=== PATIENT | male | born 1945 | race Caucasian/White ===

== ENCOUNTER → 2020-06-19 09:55 | Outpatient (BNVA) | payer MEDICARE, SELFPAY | PROVIDERS: Family Provider Nurse Practitioner Family; PCP Nurse Practitioner Family; Visit Provider Registered Nurse | DX: I10 Essential (primary) hypertension (principal); M1A.9XX0 Chronic gout, unspecified, without tophus (tophi) | CPT/HCPCS: 80053; 80061; 85025 ==

== ENCOUNTER → 2021-07-30 11:18 | Outpatient (BNVA) | payer MEDICARE, SELFPAY | PROVIDERS: Family Provider Nurse Practitioner Family; PCP Nurse Practitioner Family; Visit Provider Registered Nurse | DX: I10 Essential (primary) hypertension (principal); E78.5 Hyperlipidemia, unspecified; M1A.9XX0 Chronic gout, unspecified, without tophus (tophi); N52.1 Erectile dysfunction due to diseases classified elsewhere | CPT/HCPCS: 80053; 80061; 85025 ==

== ENCOUNTER → 2024-03-04 10:23 | Outpatient (BNVA) | payer MEDICARE, SELFPAY | PROVIDERS: Family Provider Nurse Practitioner Family; PCP Nurse Practitioner Family; Visit Provider Registered Nurse | DX: I10 Essential (primary) hypertension (principal) | CPT/HCPCS: 80053; 80061; 85025 ==

== ENCOUNTER 2025-09-23 12:28 | Outpatient (CLI) | payer MEDICARE, SELFPAY ==
--- NOTE | 2025-09-23 12:45 | USCV_ITS ---
Rick Brien Age: 80 Gender: M : 1945 Exam Date: 09/23/2025 12:43 Ordering Phys: Anat DiazP [employer]ICER Technologist: LUZ [place] [facility] [place]: Dizz[place] Risk Factors: Previous Vascular Surgery: Right Brachial BP: / Left Brachial BP: / Right Left Velocity (cm/s) Spectral Plaque Velocity (cm/s) Spectral Plaque Syst/Diast Broadening Syst/Diast Broadening 68.50/ 16.70 Prox CCA 69.80 / 20.40 58.20/ 16.70 Mid CCA 68.70 / 21.20 45.00/ 12.10 Distal CCA 63.00 / 18.10 27.70/ 7.40 Prox ICA 52.10 / 16.40 71.70/ 24.00 Mid ICA 67.50 / 24.70 74.90/ 27.40 Distal ICA 79.60 / 29.40 44.20 ECA 54.20 0.60 ICA/CCA 0.80 Antegrade Vertebral Antegrade 40.00/ 12.00 cm/s 50.90/ 13.30 cm/s Tri Subclavian Tri 88.80 67.70 CONCLUSIONS Right ICA stenosis <50%. Moderate atheromatous plaque right carotid bulb/ICA. Left ICA stenosis <50%. Mild atheromatous plaque left carotid bulb/ICA. Normal antegrade Doppler flow noted in the right vertebral artery. Normal antegrade Doppler flow noted in the left vertebral artery. Sriram Pollard MD (Electronically Signed) Final Date: 23 September 2025 16:54 S
== END 2025-09-23 12:29 | disposition home or self-care (01) ==
PROVIDERS: Family Provider Nurse Practitioner Family; PCP Registered Nurse; Visit Provider Registered Nurse
DX: R42 Dizziness and giddiness (principal); I10 Essential (primary) hypertension; I65.23 Occlusion and stenosis of bilateral carotid arteries
CPT/HCPCS: 93880